=== PATIENT | female | born 1975 | race Caucasian/White ===

== ENCOUNTER 2021-10-18 09:15 | Outpatient (CLI) | payer BC, SELFPAY ==
--- NOTE | ~2021-10-18 | MR_ITS ---
EXAMINATION: MR lumbar spine wo con DATE: 10/18/2021 10:43 INDICATION: Low back pain. TECHNIQUE: Magnetic resonance imaging (MRI) of the lumbar spine was performed without intravenous con trast. Sequences included sagittal T2-weighted FSE, sagittal T2-weighted FS FSE, sagittal T1-weighted FSE, and axial T2-weighted FSE. COMPARISON: None FINDINGS: There is 6 degrees dextrocurvature of lumbar spine. There is 3 mm retrolisthesis of L5 on S 1. Vertebral body heights are normal. There is mildly decreased disc height at L3-L4 and severely dec reased disc height at L5-S1 with endplate remodeling. The distal spinal cord signal intensity is norm al. The conus medullaris is at L1-L2. The following disc levels are specifically discussed: L1-L2: The disc does not extend beyond the endplate margin. There is no facet joint osteoarthritis. T here is no neural foraminal stenosis. There is no central canal stenosis. L2-L3: The disc does not extend beyond the endplate margin. There is mild bilateral facet joint osteo arthritis. There is no neural foraminal stenosis. There is no central canal stenosis. L3-L4: The disc is bulging with superimposed central extrusion. There is mild bilateral facet joint o steoarthritis. There is mild right neural foraminal stenosis. There is mild central canal stenosis. L4-L5: The disc does not extend beyond the endplate margin. There is mild bilateral facet joint osteo arthritis. There is no neural foraminal stenosis. There is no central canal stenosis. L5-S1: The disc is bulging and has an annular fissure. There is no facet joint osteoarthritis. There is mild bilateral neural foraminal stenosis. There is no central canal stenosis. IMPRESSION: 1. Severe lower lumbar spondylosis. Reviewed, dictated and finalized at location B. STRIAL CONTROLS TECHNICIAN
== END 2021-10-18 09:16 | disposition home or self-care (01) ==
LOC: ANHIMG 09:22
PROVIDERS: PCP Internal Medicine; Visit Provider Physician Assistant Surgical
DX: M54.50 Low back pain, unspecified (principal); M47.816 Spondylosis without myelopathy or radiculopathy, lumbar region
CPT/HCPCS: 72148

== ENCOUNTER 2022-04-02 14:38 | Emergency (ER) | payer BC, SELFPAY ==
[2022-04-02] VITALS (18 sets, daily range): BP systolic 118–151; BP diastolic 62–95; PULSE 62–98; RESP 14–24; TEMP 36.6; O2SAT 94–100
--- NOTE | ~2022-04-02 | XR_ITS ---
EXAMINATION: XR chest 2V Exam Date/Time: 04/02/2022 14:45 CDT CLINICAL HISTORY: LEFT SIDE CHEST PAIN, RADIATING TO ARM AND JAW Comparison: None available. RESULT: Lines, tubes, and devices: None. Lungs and pleura: Clear. Cardiomediastinal silhouette: Normal cardiomediastinal silhouette. Other: No acute osseous or upper abdominal finding. IMPRESSION: No acute cardiopulmonary process Reviewed, dictated and finalized at location K.
--- NOTE | 2022-04-02 14:44 | ECG_ITS ---
Measurements Intervals [place] Rate: 83 P: 20 [place]: 146 QRS: -23 QRSD: 93 T: 50 QT: 381 QTc: 450 Interpretive Statements SINUS RHYTHM BASELINE ARTIFACT- V4 NORMAL ECG Electronically Signed On 04-02-2022 19:40:42 CDT by Isidro Herrera D.O.
--- NOTE | 2022-04-02 14:48 | ED.CHESTPAIN ---
HPI - Chest Pain General Chief Complaint: Chest Pain <Fide Jacobsen PA-C - Last Filed: 04/02/22 19:14> Stated Complaint: chest pain <GUMARO Bartholomew Last Filed: 04/02/22 19:14> Time Seen by Provider: 04/02/22 14:47 <GUMARO Bartholomew Last Filed: 04/02/22 19:14> Source: patient <GUMARO Bartholomew Last Filed: 04/02/22 19:14> Mode of arrival: ambulatory <GUMARO Bartholomew Last Filed: 04/02/22 19:14> Limitations: no limitations <GUMARO Bartholomew Last Filed: 04/02/22 19:14> History of Present Illness HPI narrative: Patient is a 46-year-old female with history of hypertension and hyperlipidemia who presents to the ED with report of chest pain. Patient reports she had pain in her left sided chest under her left breast around 2:30 AM this morning. She also reported having mild heaviness in her left arm at that time. The pain was intermittent for a couple hours. The pain did seem to radiate somewhat through to her back. Prior to arrival, she had another episode of pain which felt like it was coming from her right-sided chest across to her left, again with heaviness in her left arm. She then decided to come to the ED. Denies any significant pain upon my evaluation. She also reports having mild shortness of breath but does state she has been very anxious lately and also was seen at [facility] last week for an allergic reaction with possible anaphylaxis. No signs of anaphylaxis, systemic allergic reaction, or airway compromise at this time. Her allergic symptoms have improved with steroids Pepcid and Benadryl. Denies any nausea, vomiting, abdominal pain, fever, chills, cough, recent cold symptoms, pain with inspiration, BLE pain or edema. No family history of cardiac disease that she is aware of. No diabetes. No smoking. Patient does note she has been under increased stress lately with her allergic reaction episode, her daughter getting next week, and having upcoming back surgery. <GUMARO Bartholomew Last Filed: 04/02/22 19:14> Related Data Allergies/Adverse Reactions: Allergies Allergy/AdvReac Type Severity Reaction Status Date / Time aspirin Allergy Mild LIP Verified 04/02/22 16:33 TINGLING/SWELLING Penicillins Allergy Unknown Dyspnea / Unverified 04/02/22 16:33 SOB pregabalin Allergy Swelling Verified 04/02/22 16:33 <Fide Jacobsen PA-C - Last Filed: 04/02/22 19:14> Review of Systems Review of Systems: CONSTITUTIONAL: Denies fever, chills, or sweats. ENT: Denies rhinorrhea, congestion. CARDIOVASCULAR: Reports bilateral chest pain. Denies palpitations or BLE edema. RESPIRATORY: Reports mild shortness of breath. Denies pain with inspiration, cough. GASTROINTESTINAL: Denies abdominal pain, nausea, vomiting, or diarrhea. MUSCULOSKELETAL: Reports back pain. Denies BLE pain. NEUROLOGIC: Denies headache, numbness, or weakness. PSYCHIATRIC: Reports anxiety. <Fide Jacobsen PA-C - Last Filed: 04/02/22 19:14> All systems reviewed & are unremarkable except as noted in HPI and below <Fide Jacobsen PA-C - Last Filed: 04/02/22 19:14> PMFSH Past Medical History Medical History: Medical History (Updated 04/02/22 @ 18:42 by Fide Jacobsen PA-C) Hyperlipidemia Hypertension TIA (transient ischemic attack) <Fide Jacobsen PA-C - Last Filed: 04/02/22 19:14> Surgical History Surgical History: Surgical History (Updated 04/02/22 @ 15:09 by Fide Jacobsen PA-C) History of hysterectomy <Fide Jacobsen PA-C - Last Filed: 04/02/22 19:14> Social History Social History: Social History (Updated 04/02/22 @ 15:09 by Fide Jacobsen PA-C) Smoking status: Never smoker <Fide Jacobsen PA-C - Last Filed: 04/02/22 19:14> Exam Narrative: GENERAL: Well appearing, well-nourished, non-toxic, in no acute distress. HEAD: Normocephalic, atraumatic. NECK: Supple. No adenopathy, no masses. ENT: Pharynx n
[2022-04-02 15:30] LABS: Basophils Absolute Auto 0.1 K/mm3 (0.0-0.1); Basophils Percent Auto 0.9 % (0.2-1.2); Eosinophils Absolute Auto 0.1 K/mm3 (0-0.3); Eosinophils Percent Auto 0.7 % (0-4.4); Hematocrit 45.9 % (37.0-47.0); Hemoglobin 14.9 g/dL (12.0-15.0); Immature Granulocyte Absolute 0.11 K/mm3 (0.00-0.031); Immature Granulocyte Percent A 0.9 % (0-0.5); Lymphocytes Absolute Auto 3.54 K/mm3 (0.9-3.2); Lymphocytes Percent Auto 30.5 % (18.3-44.2); Mean Corpuscular HGB Conc 32.5 g/dl (32-36); Mean Corpuscular Hemoglobin 31.7 pg (26-34); Mean Corpuscular Volume 97.7 fl (80-100); Mean Platelet Volume 9.9 fl (7.4-10.4); Monocytes Absolute Auto 1.2 K/mm3 (0.1-0.6); Monocytes Percent Auto 10.3 % (2.6-8.5); Neutrophils Absolute Auto 6.6 K/mm3 (1.3-6.7); Neutrophils Percent Auto 56.7 % (45.5-73.1); Platelet Count Result 360 k/mm3 (150-375); Red Cell Distribution Width 12.5 % (11.5-14.5); White Blood Count 11.6 K/mm3 (4.5-10.0)
[2022-04-02 15:40] LABS: Prothrombin Time 12.8 Seconds (11.1-14.7)
[2022-04-02 15:41] LABS: Alanine Aminotransferase 17 U/L (4-35); Albumin Level 4.1 g/dL (3.5-5.1); Alkaline Phosphatase 71 U/L (38-126); Anion Gap 8 mmol/L (8-16); Aspartate Amino Transferase 25 U/L (14-36); Bilirubin,Total 0.3 mg/dL (0.2-1.3); Blood Urea Nitrogen 15 mg/dL (7-17); Carbon Dioxide 27 mmol/L (22-30); Chloride 104 mmol/L (98-107); Estimated CRCL calculation 82 ml/min; Estimated Glomerular Filt Rate > 60; Glucose 119 mg/dL (65-110); Lipase 193 U/L (23-300); Partial Thromboplastin Time 26.5 SECONDS (22.3-36.8); Potassium 3.2 mmol/L (3.4-5.0); Sodium 139 mmol/L (137-145)
[2022-04-02 15:43] LABS: D Dimer 0.36 ug/mL (<0.48)
[2022-04-02 15:53] LABS: Troponin I < 0.012 ng/mL (0.000-0.034)
[2022-04-02] MEDS: POTASSIUM CHLORIDE 20 MEQ TABLET 40 MEQ PO (16:33)
[2022-04-02 18:23] LABS: Troponin I < 0.012 ng/mL (0.000-0.034)
== END 2022-04-02 19:15 | disposition home or self-care (01) ==
PROVIDERS: Emergency Medicine; Physician Assistant; Emergency Provider Emergency Medicine; PCP Internal Medicine
DX: R07.89 Other chest pain (principal); E87.6 Hypokalemia; I10 Essential (primary) hypertension; E78.5 Hyperlipidemia, unspecified; Z86.73 Personal history of transient ischemic attack (TIA), and cerebral infarction without residual deficits
CPT/HCPCS: 36415; 71046; 80053; 83690; 84484; 85025; 85380; 85610; 85730; 93005; 99284; A9270

== ENCOUNTER 2022-06-15 08:57 | Outpatient (CLI) | payer BC, SELFPAY ==
--- NOTE | ~2022-06-15 | XR_ITS ---
EXAMINATION: XR barium swallow modified DATE: 06/15/2022 09:37 INDICATION: Dysphagia. Lump in throat. TECHNIQUE: The patient was given barium-containing material of multiple consistencies to swallow by t no speech pathologist while I performed fluoroscopy. Fluoroscopy exposure time was 1.0 minutes. The n umber of fluoroscopy images saved to the PACS was 2. Dose-area product was 0.6 Gy-cm^2. FINDINGS: The oral, pharyngeal, and cervical/esophageal phases of the swallow are normal. IMPRESSION: 1. Normal modified barium swallow. 2. Please refer to the speech therapy report for recommendations. Reviewed, dictated and finalized at location A.
--- NOTE | 2022-06-16 15:57 | STOPEVAL ---
MODIFIED BARIUM SWALLOW EVALUATION: Thank you for referring Fide Ni to [facility].? T Attending Provider: Jhoan Sadler MD FAX: [phone] Modified Barium Swallow Evaluation Recent Swallowing History Reports Dysphagia Yes: feels a lump & tightness in her throat when she swallows Onset of Dysphagia few months ago History of Dysphagia No Other Related History Pt reported increased anxiety recently History of Pneumonia No Reported Difficult Consistencies Unable to Identify Intake Method Prior to Swallow Oral Evaluation Diet Prior to Swallow Evaluation Regular, Level 7 Liquid Consistency Prior to Swallow Thin (0) Evaluation Consistency Solid Consistency Method of Presentation Spoon Oral Preparatory Symptoms None Oral Phase Symptoms None Pharyngeal Phase Symptoms None Severity of Vallecular Residue None - 0% No Residue Severity of Pyriform Sinus Residue None - 0% No Residue 8 Point Laryngeal Penetration-Aspiration Material Does Not Enter Airway Scale Cervical/Esophageal Symptoms None Mixed Consistency Method of Presentation Spoon Oral Preparatory Symptoms None Oral Phase Symptoms None Pharyngeal Phase Symptoms None Severity of Vallecular Residue None - 0% No Residue Severity of Pyriform Sinus Residue None - 0% No Residue 8 Point Laryngeal Penetration-Aspiration Material Does Not Enter Airway Scale Cervical/Esophageal Symptoms None Pureed Consistency Method of Presentation Spoon Oral Preparatory Symptoms None Oral Phase Symptoms None Pharyngeal Phase Symptoms None Severity of Vallecular Residue None - 0% No Residue Severity of Pyriform Sinus Residue None - 0% No Residue 8 Point Laryngeal Penetration-Aspiration Material Does Not Enter Airway Scale Cervical/Esophageal Symptoms None Thin Uncontrolled 2 Method of Presentation Straw Oral Preparatory Symptoms None Oral Phase Symptoms None Pharyngeal Phase Symptoms None Severity of Vallecular Residue None - 0% No Residue Severity of Pyriform Sinus Residue None - 0% No Residue 8 Point Laryngeal Penetration-Aspiration Material Does Not Enter Airway Scale Cervical/Esophageal Symptoms None Thin Uncontrolled 1 Method of Presentation Cup Oral Preparatory Symptoms None Oral Phase Symptoms None Pharyngeal Phase Symptoms None Severity of Vallecular Residue None - 0% No Residue Severity of Pyriform Sinus Residue None - 0% No Residue 8 Point Laryngeal Penetration-Aspiration Material Does Not Enter Airway Scale Cervical/Esophageal Symptoms
== END 2022-06-15 08:58 | disposition home or self-care (01) ==
PROVIDERS: PCP Internal Medicine; Visit Provider Otolaryngology
DX: R13.10 Dysphagia, unspecified (principal)
CPT/HCPCS: 92611

== ENCOUNTER 2022-06-27 15:47 | Outpatient (CLI) | payer BC, SELFPAY ==
--- NOTE | ~2022-06-27 | US_ITS ---
EXAMINATION: US soft tissue head and neck DATE: 06/27/2022 16:31 INDICATION: Pain in throat. Neck lump. TECHNIQUE: Multiple ultrasound images of the thyroid were obtained. COMPARISON: None. FINDINGS: The right thyroid lobe measures 4.2 x 1.2 x 1.4 cm. The left thyroid lobe measures 3.4 x 1.0 x 1.4 c m. The thyroid demonstrates heterogeneous echogenicity. No discrete nodule. Thyroid vascularity is n ormal. There are no pathologically enlarged lymph nodes. IMPRESSION: 1. No etiology for the patient's symptoms. Reviewed, dictated and finalized at location A.
== END 2022-06-27 15:48 | disposition home or self-care (01) ==
PROVIDERS: PCP Internal Medicine; Visit Provider Internal Medicine
DX: R07.0 Pain in throat (principal)
CPT/HCPCS: 76536

== ENCOUNTER 2024-07-16 07:56 | Outpatient (CLI) | payer OTHER, SELFPAY ==
--- NOTE | ~2024-07-16 | XR_ITS ---
3 VIEWS LUMBAR SPINE Ordering provider: Nik Sequeira, History: . no injuey left side Low back pain . Comparison: None. FINDINGS: VERTEBRAL BODIES: No visible fracture or subluxation. DISK SPACES: Narrowing of the disc L3-L4. Disc spacer at the level of L5-S1. Facet joint disease at t he level of L5-S1. SOFT TISSUES: Normal. IMPRESSION: No acute osseous abnormality lumbar spine. Reviewed, dictated and finalized at location A.
== END 2024-07-16 07:57 ==
PROVIDERS: PCP Internal Medicine; Visit Provider Internal Medicine
DX: M54.50 Low back pain, unspecified (principal)
CPT/HCPCS: 72100

== ENCOUNTER 2024-08-12 08:11 | Outpatient (CLI) | payer OTHER, SELFPAY ==
--- NOTE | ~2024-08-12 | CT_ITS ---
EXAMINATION: CT lumbar spine wo con DATE: 08/12/2024 08:28 INDICATION: Fusion of spine, lumbar region. TECHNIQUE: Computed tomography (CT) of the lumbar spine was performed without intravenous contrast. A utomated exposure control and iterative reconstruction technique were employed. The dose-length produ ct was 656.70 mGy-cm. COMPARISON: Lumbar spine radiographs 07/16/2024 FINDINGS: There is 9 degrees dextrocurvature lumbar spine. There are changes of disc replacement at L 5-S1. Vertebral body heights are normal. There is mildly decreased disc height at L3-L4. The followin g disc levels are specifically discussed: L1-L2: The disc does not extend beyond the endplate margin. There is mild bilateral facet joint osteo arthritis. There is no neural foraminal stenosis. There is no central canal stenosis. L2-L3: The disc does not extend beyond the endplate margin. There is mild bilateral facet joint osteo arthritis. There is no neural foraminal stenosis. There is no central canal stenosis. L3-L4: The disc is bulging. There is mild bilateral facet joint osteoarthritis. There is mild right n eural foraminal stenosis. There is mild central canal stenosis. L4-L5: The disc is bulging. There is moderate right and mild left facet joint osteoarthritis. There i s mild right neural foraminal stenosis. There is mild central canal stenosis. L5-S1: There is severe bilateral facet joint osteoarthritis. There is mild left neural foraminal sten osis. There is mild central canal stenosis. IMPRESSION: 1. Mild lumbar spondylosis. 2. Disc replacement at L5-S1. Reviewed, dictated and finalized at location A.
== END 2024-08-12 08:12 | disposition home or self-care (01) ==
LOC: MICIMG 08:12
PROVIDERS: PCP Internal Medicine
DX: M47.816 Spondylosis without myelopathy or radiculopathy, lumbar region (principal); M43.26 Fusion of spine, lumbar region
CPT/HCPCS: 72131

== ENCOUNTER 2025-04-19 09:10 | Outpatient (CLI) | payer OTHER, SELFPAY ==
--- NOTE | ~2025-04-19 | XR_ITS ---
XR hip LT min 2V 04/19/2025 09:23 Indication: Left hip pain Procedure: 2 views left hip Comparison: No prior studies for comparison. Findings: No fracture, subluxation or dislocation. Mild osteoarthritis of the left hip. No soft tissu e abnormality. Impression: 1: Mild osteoarthritis of the left hip. Reviewed, dictated and finalized at location A. Impression: 1: Mild osteoarthritis of the left hip.
== END 2025-04-19 09:11 | disposition home or self-care (01) ==
LOC: MICIMG 09:13
PROVIDERS: PCP Internal Medicine; Visit Provider Internal Medicine
DX: M16.12 Unilateral primary osteoarthritis, left hip (principal)
CPT/HCPCS: 73502

== ENCOUNTER 2025-06-02 09:32 | Outpatient (CLI) | payer OTHER, SELFPAY ==
--- NOTE | ~2025-06-02 | XR_ITS ---
EXAMINATION: XR lg joint inject/asp add, XR lg joint inject/asp w image DATE: 06/02/2025 13:09 INDICATION: Bilateral hip pain TECHNIQUE: A time-out was performed to verify the patient's name, date of , and procedure to b e performed. The procedure including the risks, benefits, and alternatives was discussed with the pat ient. Risks discussed included bleeding, allergic reaction and infection. The patient understood the risks and agreed to proceed. Attention was first turned to the right hip joint. The skin overlying th e right hip joint was prepped and draped in usual sterile fashion. Anesthetic was administered with 1% lidocaine subcutaneously. A 22 G needle was advanced under fluoroscopic guidance into the joint. Injection of 1 mL of Omnipaque 240 confirmed intra-articular position of the needle. Subsequently, i njectate consisting of 5 mm a 4:1 mixture of 1% lidocaine: 40 mg/mL Depo-Medrol was instilled. The pa tient began to experience some lightheadedness, shortness of breath and numbness and tingling in the fingers however this either shortly preceded or was exactly contemporaneous with the contrast injecti on essentially excluding contrast reaction as the etiology. Aside from the anxious appearance of the patient she was in otherwise no apparent distress with normal respiratory rate and with oxygen satura tion of 100%. There was no wheezing, hives or other abnormal skin manifestations. The needle was angelia demarco and the entry site was cleaned and dressed. The table was tilted to slightly elevate the patient' s feet and her symptoms gradually resolved over the next half hour of observation. Attention was then turned to the contralateral left hip. The skin overlying the left hip joint was pr epped and draped in usual sterile fashion. Anesthetic was administered with 1% lidocaine subcutaneou sly. A 22 G needle was advanced under fluoroscopic guidance into the joint. A small amount of room a ir was injected to confirm intra-articular position of the needle. Subsequently, injectate consisting of 5 mm a 4:1 mixture of 1% lidocaine: 40 mg/mL Depo-Medrol was instilled. The patient describes sim ilar but significantly less symptoms during the second injection performed without contrast. Patient described that she has recently developed episodes of anxiety which together with possible associated vasovagal response appear most likely to account for the symptoms occurring during the procedure. Th ere were no other immediate complications. Fluoroscopy exposure time was 0.1 minutes. The total numbe r of images was 3. FINDINGS: Real-time fluoroscopy demonstrated the needle and contrast first in the right hip joint. Desouza bsequent imaging demonstrated the needle and some injected gas in the left hip joint. Patient's pain prior to procedure:06/05. Patient's pain following the procedure: 12/06. IMPRESSION: 1. Successful right hip joint injection of local anesthetic and steroid with decrease in the patient' s presenting pain. 2. Successful left hip joint injection of local anesthetic and steroid with decrease in the patient's presenting pain. 3. Likely episode of anxiety possible associated vasovagal response occurring during the initial inje ction but either immediately preceding or contemporaneous with the contrast injection and this is not felt to represent a contrast reaction. Similar but more mild symptoms also occurred during the secon d injection which was performed without contrast. Reviewed, dictated and finalized at location A. IMPRESSION: 1. Successful right hip joint injection of local anesthetic and steroid with de crease in the patient's presenting pain. 2. Successful left hip joint injection of local anesthetic and steroid with dec rease in the patient's presenting pain. 3. Likely episode of anxiety possible associated vasovagal response occurring d uring the initial injection but either immediately preceding or contemporaneous with the contrast injection and this is not felt to represent a contrast react ion. Similar but more mild symptoms also occurred during the second injection w hich was performed without contrast.
--- OUTSIDE RECORDS SUMMARY | 2025-06-02 09:40 | XMS_ITS | Referral Summary ---
Author Organization [address] Address [address] [place] [id number] Care Team Providers Care Cuff Cutter Name Role Phone Nik Sequeira MD Primary Care Provider [phone] Edgar Rodriguez MD Unavailable [phone] Encounters Date Type Department Care Team Description 04/07/[address] [facility] [address] [address] Regina Gonzalez MD 04/07/2025 2:30 PM CDT Office Visit [facility] [address] [address] Regina Gonzalez MD Overweight with body mass index (BMI) of 25 to 25.9 in adult (Primary Dx) 03/05/[address] [facility] [address] [address] Barrington Sepulveda II, MD from Last 3 Months Allergies Active Allergy Reactions Criticality Noted Date Comments Aspirin Itching Low 10/12/2022 Levofloxacin Unknown,Itching,Othe r (See comments) Low 02/11/2022 Other reaction(s): Drug rash Itching, burning, facial tingling/numbness Lisinopril Anaphylaxis,Unknown High 07/27/2022 Penicillins Unknown,Rash High 08/20/2014 Other reaction(s): Difficulty breathing with activity, Tingling around lips Pregabalin Other (See comments) Low 10/12/2022 Medications rosuvastatin (CRESTOR) 20 mg tablet Take 1 tablet (20 mg total) by mouth daily Active pantoprazole DR (PROTONIX) 40 mg EC tablet Take 1 tablet (40 mg total) by mouth daily Active busPIRone (BUSPAR) 7.5 mg tablet Active escitalopram (LEXAPRO) 10 mg tablet escitalopram 10 mg tablet Active tirzepatide, weight loss, (Zepbound) 10 mg/0.5 mL pen injector Inject 0.5 mL (10 mg total) under the skin every 7 days 2 mL 2 Active Active Problems Problem Noted Date Diagnosed Date Overweight with body mass in dex (BMI) of 25 to 25.9 in adult 04/07/2025 Abnormal mammogram 10/12/2022 Lumbar disc disease with radiculopathy Social History Tobacco Use Types Packs/Day Years Used Date Smoking Tobacco: Former Cigarettes 1 4 1 99 - 1995 Tobacco Cessation:Counseling Given: Not Answered AUDIT-C Answer Date Recorded Q1: How often do you have a drink containing alc ohol? Monthly or less 10/12/2022 Q2: How many drinks containi ng alcohol do you have on a typical day when you are drinking? 1 or 2 10/12/2022 Q3: How often do you have si x or more drinks on one occasion? 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 Gender Identity Not on file Sexual Orientation Not on file Last Filed Vital Signs Vital Sign Reading Time Taken Comments Blood Pressure 112/60 04/07/2025 2:52 PM CDT Pulse 88 04/07/2025 2:52 PM CDT Temperature - - Respiratory Rate 18 04/07/2025 2:52 PM CDT Oxygen Saturation - - Inhaled Oxygen Concentration - - Weight 78.7 kg (173 lb 9.6 oz) 04/07/2025 2:52 P M CDT Height 175.3 cm (5' 9) 04/07/2025 2:52 PM CDT Body Mass Index 25.64 04/07/2025 2:52 PM CDT Plan of Treatment Not on file Medical Devices Implanted Type Area Regulatory Analyst Device Identifier Shelf Expiration Date Model / Serial / Lot Bard Peripheral Vascular Ultraclip Bard 17ga 10cm 2 Trigger Permanent Ultrasound [id number] - [id number] Implanted:Qty: 1 on 10/26/2022 at [facility] [employer] [id number] / / Procedures Procedure Name Priority Date/Time Associated Diagnosis Comments SCREENING MAMMOGRAM BILATERAL W CRISTOPHER Schedule Routine, Read Routine (OP Routine) 02/14/2025 8:13 AM CDT Screening mammogram, encounter for from Last 3 Months or Most Recently Relevant to Health Maintenance Results * Screening Mammogram Bilateral W Cristopher (02/14/2025 8:13 AM CDT) Anatomical Region Laterality Modality Breast Bilateral Mammography 02/14/2025 8:22 AM CDT Impressions 02/14/2025 8:22 AM CDT There is no mammographic evidence of malignancy. A 1 year screening mammogram is recommended. BI-RADS: 1 - Negative. The patient has been or will be contacted. The patient will be entered into a reminder system with a target due date of 1 year for her next mammogram. Electronically signed by: Christelle Moreno M.D. Narrative 02/14/2025 8:22 AM CDT EXAMINATION: SCREENING MAMMOGRAM BILATERAL W CRISTOPHER ORDERING HEALTHCARE PROVIDER: SELF SCREENING MAMMOGRAM HISTORY: Routine screening mammography. COMPARISON: 10/26/2022, 10/12/2022, 08/16/2022, 08/03/2022, 04/19/2021 TECHNIQUE: CC and MLO views of the bilateral breasts were obtained with digital technique using breast tomosynthesis with C view. Computer aided detection was utilized. FINDINGS: DENSITY: The breasts are heterogeneously dense, which may obscure small masses. BREASTS: There is a biopsy marker clip in the left breast. There are no suspicious masses, suspicious calcifications, or other suspicious findings in either breast. There has been no suspicious interval change. us Self Screening Mammogram IMG MAMMO PROCEDURES Fi nal Result from Last 3 Months or Most Recently Relevant to Health Maintenance Insurance [employer] [facility] Care Teams Cuff Cutter Relationship Specialty Start Date End Date Nik Sequeira MD PCP - General Internal Medicine 04/07/22 Edgar Rodriguez MD [address] [place] [address] Referring Physician Obstetrics and Gynecology 08/18/22
--- OUTSIDE RECORDS SUMMARY | 2025-06-02 09:40 | XMS_ITS | Clinical Summary ---
Author Organization [facility] Address [address] [place] [address] Phone Care Team Providers Care Sap Project Manager Name Role Phone Nik Sequeira MD Primary Care Provider [phone] Allergies Active Allergy Reactions Criticality Noted Date Comments Levofloxacin Itching,Other (See Comments) Low 02/11/2022 Itching, burning, facial tingling/numbness Penicillins Rash Low 02/11/2022 Medications lisinopriL (PRINIVIL) 10 mg tablet Take 10 mg by mouth daily. Active rosuvastatin (CRESTOR) 20 mg tablet Take 20 mg by mouth daily. Active pantoprazole (PROTONIX) 40 mg Tablet, Delayed Release (E.C.) Take 40 mg by mouth daily. Active gabapentin (NEURONTIN) 300 mg capsule Take 300 mg by mouth 3 times daily. 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 Gender Identity Not on file Sexual Orientation Not on file Last Filed Vital Signs Vital Sign Reading Time Taken Comments Blood Pressure 174/118 02/11/2022 10:13 AM CDT Pulse 84 02/11/2022 10:18 AM CDT Temperature - - Respiratory Rate 18 02/11/2022 9:08 AM CDT Oxygen Saturation 95% 02/11/2022 10:18 AM CDT Inhaled Oxygen Concentration - - Weight - - Height - - Body Mass Index - - Plan of Treatment Health Maintenance Due Date Last Done Comments DTAP/TDAP/TD VACCINES (1 - Tdap) 1996 HEPATITIS B VACCINES (1 of 3 - 19+ 3-dose series) 07/28 BREAST CANCER SCREENING 2017 COLORECTAL SCREENING 2022 Colorectal Cancer Screening 2022 FIT-DNA Q 3 years 2022 FIT/FOBT Q 1 year 2022 Flex Sig/CT Colonography Q 5 years 2022 INFLUENZA VACCINE (#1) 2025 Insurance BLUE PREFERRED Care Teams Sap Project Manager Relationship Specialty Start Date End Date Nik Sequeira MD [address] [facility] [address] [place] [id number] PCP - General Internal Medicine 02/09/22
--- OUTSIDE RECORDS SUMMARY | 2025-06-02 09:40 | XMS_ITS | Data Portability ---
Author Organization [place] [facility] [employer], Main Office Address [address] [place] [address] Assessment Encounter Date Assessment Date Assessment LastModified by Organization Details LastModified Time 07/26/2024 07/26/2024 The patient is here today to f/u after more than six weeks of physician directed home exercise routine and oral medication. The pain has not improved and she is now hurting on a daily basis and is limiting her activities of daily living. [email or web address] Not available 07/26/2024 16:29:24 05/05/2025 05/05/2025 49-year-old female presents for evaluation of her bilateral hips. She reports pain in the hips that has been going on since 2021. Around that time she had a lumbar fusion and was told that the pain is coming from the hips rather than the back. She has tried ice and heat as well as meloxicam and gabapentin none of which have really helped. She reports pain and burning going down her legs. Is in the front and back. She currently rates her pain 6/10. Review of systems per patient questionnaire physical exam: She has positive straight leg raise and contrast straight leg raise bilaterally, worse on the left. No pain with logroll. Flexion 0 110, internal rotation 10, external rotation 30 bilaterally. Tenderness over the groin and posterior hip. No tenderness over the lateral trochanter. Positive Stinchfield, good strength with flexion, abduction, adduction. X-rays of the right hip and pelvis were reviewed and previous x-rays of the left hip were also reviewed, demonstrating a lumbar fusion. Mild degenerative changes. she has some hip arthritis but given her exam findings she may also have pain that is coming from her back. We will send her to physical therapy and add her hips in addition to her spine. She has been taking meloxicam which does not really help him we will try switching her over to Celebrex. We also discussed a hip injection which would be diagnostic and therapeutic. We will start with her left hip and see how that works for her. We will see her back in 6 weeks for recheck. She is in agreement with the plan. [email or web address] Not available 05/05/2025 12:30:22 Plan of Treatment Reminders Order Date Submit Date Provider Last Modified By Organization Details Last Modified Time Details Appointments Any 5 2024 08:55A M Moe Damon MD Not available Not available Not available Lab vitamin D, 25-hydr oxy, total, serum 2024 025 [email or web address] [facility], [address], [address], [place], [address], 04/01/2025 09:58:15 CBC w/ auto diff 2024 025 [email or web address] [facility], [facility] [address], [address], [place], [address], 04/01/2025 09:58:14 CMP, serum or plasma 2024 025 [email or web address] [facility], [address], [address], [place], [address], 04/01/2025 09:58:14 lipid panel, serum 2024 025 DIDIER [facility], [address], [place], [address], 03/26/2025 11:05:35 Referral physica l therapi st referra l - Please contact patient to travon mayen 2024 025 [email or web address] [facility] [place], [address] [place] [address], [place], [address], 05/06/2025 13:12:00 orthope dic spine surgeon pari l - we have been working with the patient to obtain poly berger for mri and return to Dr. Roberto O'boyni ck for continu ed care, she is an establi shed patient with previou s surgery . Insuhelen roman has been denying the mri. 2023 024 [email or web address] Gus Persaud MD, [address], [address], [place], [address], 09/24/2024 08:32:07 Procedures injecti on, hip, fluoro guidanc e (PROC) - EUNICE hips 4cc 1% Lidocai ne & 40mg Depomed rol Precert ificati on Require d?: N 2024 025 [facility], [address] [facility] [address] [facility], [facility], [place], [address], 05/09/2025 16:10:34 Surgeries None recorde d. Imaging XR, hip + pelvis, unilate ral 2024 025 [email or web address] [facility] [place], [address], [place], [address], 05/06/2025 13:12:00 XR, hip, unilate ral, 2 or 3 view 2024 025 [facility], [address], [facility] [address], [place], [address], 04/22/2025 14:13:21 MAMMO, screeni ng, bilater al - Please call patient to travon monte 2024 025 [email or web address] 1 Tim [facility]udelo (Radiology), [address] [facility] , [place], [address], 12/23/2024 16:46:23 MRI, lumbar spine, w/o contras t - pt has complte d six weeks of conserv ative treatme nt under physici an directi on with no improve ment will need to start a new prior authori zation 2023 024 [facility], [address], [facility] [address], [place], [address], 09/02/2024 17:08:31 Medication Orders Lidoder m 5 % topical patch 2024 025 [email or web address] [facility], [address] [place] [address], [id number], 05/16/2025 11:54:17 doxycyc line hyclate 100 mg capsule 2024 025 DIDIER [facility], [address] [place] [address], [id number], 05/15/2025 11:13:48 celecox ib 200 mg capsule 2024 025 [email or web address] [facility], [address] [place] [address], [id number], 05/15/2025 10:33:54 Patient TargetsNo targets recorded. Patient Instructions Encounter Date Encounter Id Patient Instructions Last Modified By Organization Details Last Modified Time 05/15/2025 [id number] Discussed the importance of antibiotic therapy compliance. Patient needs to take medication as prescribed, including completing entire course even if symptoms improve/resolve. Discussed possible side effects of medication. Instructed patient to take medication with food to prevent stomach upset and increase daily water intake. Patient will follow up in 3-4 days if symptoms are not improving or worsen while taking antibiotics. [email or web address] Not available 05/15/2025 11:09:19 Avoid tanning beds and sun exposure at this time due to medication side effect. If out in sun, wear protective clothing and wear sunscreen, or avoid sun at this time. Patient aware of risks and concerns. [email or web address] Not available 05/15/2025 11:13:41 Reason for Referral Orthopedic Spine Surgeon Ref erral for Low back pain we have been working with the patient to obtain insurance approval for mri and return to Dr. Roberto Persaud for continued care, she is an established patient with previous surgery. Insurance has been denying the mri. Referring Physician: Anjana Mcclendon, Family Medicine, Encounter Date: 07/26/2024 Physical Therapist Referral for Pain of hip region Please contact patient to schedule Referring Physician: Moe Damon, Orthopedic Surgery, Encounter Date: 05/05/2025 Results Created Date Observation Date Name Description Value Unit Range Abnormal Flag Note LastModifiedBy Organization Detail LastModifiedTime 07/19/20 24 07/16/2024 XR, lumbo sacra l spine , 2 or 3 view No observ ation record ed. [email or web address] Not Available 2023 08:24:29 08/13/[address], lumba r spine , w/o contr ast No observ ation record ed. BARCODE Not Available 2023 18:39:36 02/15/2002/14/2025 MAMMO , scree florinda, bilat eral No observ ation record ed. [email or web address] [facility] (Radiology) [address] [place] [address] , [place], [address], 02/19/2025 15:52:56 04/22/20 25 04/22/2025 XR, hip, unila teral , 2 or 3 view No observ ation record ed. [email or web address] [facility] [address] [place] [address], [place], [address], 04/23/2025 15:03:09 05/05/20 XR, hip + pelvi s, unila teral No observ ation record ed. [email or web address] [facility] [address], [place], [address], 05/05/2025 11:19:06 Result Notes None recorded. Problems Name Problem SNOMED Code Status Onset Date Resolution Date Notes Provider Name and Address Organization Details Recorded Time Pain in right sacroilia c joint 59276375906 240697 Completed 202005/25/2022 Not Available [facility] 14:14:44 Pain in throat 316266156 Completed 202108/16/2022 Not Available [facility] 14:14:45 Heartburn 27359980 Completed 201805/25/2022 Not Available [facility] 3 14:14:45 Mammograp hy abnormal 687953810 Active 2021 Not Available [facility] 4 21:49:14 Hypertrop hy of uterus 893966233 Completed 03/24/2025 Nik Sequeira MD [address] [facility], [facility] [address], [place], [address] , [facility] [employer] 5 09:29:44 Gastroeso phageal reflux disease 350298073 Active 2020 Not Available [facility] 4 21:49:14 Vaginal discharge 339995641 Completed Not Available [facility] 3 14:14:45 Cyst of skin 393124642 Active 2021 Not Available [facility] 4 21:49:14 Pain in toe 735881056 Completed 201805/25/2022 Not Available [facility] 3 14:14:45 Chest pain 45887319 Completed 202105/25/2022 Not Available [facility] 3 14:14:45 Hypertrig lyceridem ia 836577818 Active Not Available [facility] 4 21:49:14 Menometro rrhagia 930665386 Active Not Available [facility] 4 21:49:14 Sinusitis 29808600 Completed TOM Wing, [facility] [employer] 4 11:14:40 Hematoma 299648355 Completed Not Available [facility] 3 14:14:46 Onychomyc osis of toenails 854425460 Completed 201805/25/2022 Not Available [facility] 3 14:14:46 Obesity 662113909 Active 2020 Not Available [facility] 4 21:49:14 Allergic reaction to drug 188791380 Completed 202105/25/2022 Not Available [facility] 3 14:14:46 Seasonal allergy 740934663 Active 2018 Not Available [facility] 4 21:49:14 Anxiety 49988192 Active Not Available [facility] 4 21:49:14 Hyperlipi demia 72084594 Active Not Available [facility] 4 21:49:14 Essential hypertens ion 88694045 Active Not Available [facility] 4 21:49:14 COVID-19 599702651 Active 2022 Not Available [facility] 4 21:49:14 Fatigue 86916493 Completed 202005/25/2022 Not Available [facility] 3 14:14:47 Acute sinusitis 11449333 Active 2022 Not Available [facility] 4 21:49:14 Sleep pattern disturban ce 74894427 Active 2022 Not Available [facility] 4 21:49:14 Vaginitis 76112261 Active 2022 Not Available [facility] 4 21:49:14 Yeast detected 947687726 Active 2022 Not Available [facility] 4 21:49:14 Acute bronchiti s 01721021 Active 2023 ESAU Nunes, [place] [facility] [employer] [facility] 4 15:06:24 Low back pain 224003154 Active 2023 Nik Sequeira MD [address], [address], [place], [address] , [facility] [address] [email or web address] [facility] 4 09:35:17 Gout 99690947 Active 2023 Nik Sequeira MD [address], [address], [place], [address] , [facility] [email or web address] 4 09:36:42 Folliculi tis 24331026 Active 2023 Nik Sequeira MD [address], [address], [place], [address] , [facility] [employer] [facility] 4 09:36:42 Sinusitis 38749867 Active 2023 Mavis Zheng MA null, [place] [facility] [place] [facility] 4 11:14:40 Lumbar radiculop athy 858889822 Active 2023 Mavis Zheng MA null, [place] [facility] 4 14:45:26 Chronic low back pain 896172152 Active 2023 Mavis Zheng MA null, [place] [facility] [place] [facility] 4 14:46:43 Allergic rhinitis 60090631 Active 2023 Radha pozo RMA null, [place] [facility] [place] [facility] 4 16:59:05 Pain of left hip joint 81446497068 9100 Active 2024 Nik Sequeira MD [address], [address], [place], [address] , [facility] 5 09:25:25 Candidias is of skin 38642560 Active 2024 Mavis Zheng MA null, [facility] 5 17:00:21 Arthritis 1123233 Active 2024 Radha pozo RMAutumn null, [facility] 5 17:38:44 Pain of hip region 48034432 Active 2024 BRITTANIE Ramirez [address], [address], [place], [address] , [facility] 5 11:29:03 Osteoarth ritis of hip 478114804 Active 2024 Kate Freitas null, [place] [facility] [place] [facility] 5 11:45:28 Acute otitis media 6567779 Active 2024 BRITTANIE Ramirez [address], [address], [place], [address] , [facility] 5 10:51:29 Otitis externa 5681785 Active 2024 BRITTANIE Ramirez [address] [facility], [address], [place], [address] , [employer] 5 10:32:43 Notes:back/neck problems, st roke Problem Notes None recorded. Procedures Surgical History Date Name Laterality Status Provider Name and Address Organization Details Recorded Time Back Surgery completed ESAU [facility] 05/05/2025 11:17:03 Imaging Results None recorded. Procedure Notes None recorded. Medical Equipment None Reported. Allergies Allergen ID Allergen Name Allergen Category Reaction Reaction Severity Criticality Documentation Date Start Date Code Code System Note Provider Name and Address Organization Details Recorded Time 77825 Product containin g penicilli n (product) medicatio n rash severe Not available 01/25/20232013 39306 8001 SNOMED red bumps , itchi ness Not Available formerly [facility] 3 14:18:26 83560 lisinopri l medicatio n Not available Not available Not available 01/25/2023 36314 RxNorm angio edema Not Available formerly [facility] 3 14:18:26 75168 aspirin medicatio n itching Not available Not available 01/25/2023 1191 RxNorm LIPS TURN PURPL E Not Available formerly [facility] 3 14:18:26 Medications Name Sig Start Date Stop Date Status Note LastModified by Organization Details LastModified Time celecoxib 200 mg capsule TAKE 1 CAPSULE BY MOUTH ONCE DAILY 05/15 completed Not Available Not Available Not Available cyclobenz aprine 10 mg tablet Take 1 tablet 3 times a day by oral route as needed. 11/01 completed Not Available Not Available Not Available Augmentin 875 mg-125 mg tablet Take 1 tablet every 12 hours by oral route for 10 days. 01/22 completed Not Available Not Available Not Available prednison e 10 mg tablet TAKE 1 TAB 3 TIMES DAILY FOR 3 DAYS THEN TAKE 1 TAB TWICE DAILY FOR 2 DAYS AND THEN TAKE 1 TAB ONCE DAILY FOR 1 DAY 08/31 completed Not Available Not Available Not Available doxycycli ne hyclate 100 mg capsule TAKE 1 CAPSULE BY MOUTH TWICE DAILY FOR 5 DAYS active Not Available Not Available No t Available trazodone 50 mg tablet Take 1 tablet every day by oral route as needed. active Not Available Not Available No t Available oxybutyni n chloride ER 10 mg tablet,ex tended release 24 hr Take 1 tablet every day by oral route. 08/20 completed Not Available Not Available Not Available azithromy nasreen 250 mg tablet TAKE 2 TABLETS BY MOUTH ON DAY 1, AND THEN TAKE 1 TABLET BY MOUTH ONCE A DAY ON DAY 2 THROUGH DAY 5 01/22 completed Not Available Not Available Not Available alprazola m 1 mg tablet TAKE 1 TAB BY MOUTH BEFORE FLIGHT 05/05 completed Not Available Not Available Not Available amitripty line 75 mg tablet active Not Available Not Available No t Available tizanidin e 4 mg tablet TAKE 1 TABLET BY MOUTH EVERY 6 TO 8 HOURS NEEDED MAX 3 DOSES IN 24 HOURS 01/31 completed Not Available Not Available Not Available fluconazo le 150 mg tablet TAKE 1 TABLET BY MOUTH ONCE DAILY FOR 1 DAY 05/05 completed Not Available Not Available Not Available benzonata te 200 mg capsule TAKE 1 CAPSULE BY MOUTH THREE TIMES DAILY NEEDED active Not Available Not Available No t Available hydrocodo ne 5 mg-acetam inophen 325 mg tablet 06/16 completed Not Available Not Available Not Available senna 8.6 mg tablet TAKE 2 TABLETS BY MOUTH IN THE EVENING FOR 7 DAYS NEEDED FOR CONSTIPA TION 09/05 completed Not Available Not Available Not Available meloxicam 15 mg tablet TAKE 1 TABLET BY MOUTH ONCE DAILY 05/15 completed Not Available Not Available Not Available ondansetr on HCl 4 mg tablet TAKE 1 TABLET BY MOUTH EVERY 8 HOURS NEEDED FOR NAUSEA 12/17 completed Not Available Not Available Not Available prednison e 20 mg tablet TAKE 3 TABLETS BY MOUTH ONCE DAILY FOR 5 DAYS 04/07 completed Not Available Not Available Not Available ciproflox acin 250 mg tablet TAKE 1 TABLET BY MOUTH EVERY 12 HOURS FOR 5 DAYS active Not Available Not Available No t Available sulfameth oxazole 800 mg-trimet hoprim 160 mg tablet active Not Available Not Available Not Available tramadol 50 mg tablet 01/23 completed Not Available Not Available Not Available amitripty line 50 mg tablet active Not Available Not Available No t Available ketorolac 10 mg tablet TAKE 1 TABLET BY MOUTH EVERY 8 HOURS NEEDED FOR UP TO 5 DAYS TOTAL USE 12/17 completed Not Available Not Available Not Available prednison e 10 mg tablets in a dose pack Take 1 tab by mouth, 3 times a day for 3 daysTake 1 tab by mouth 2 times a day for 2 daysTake 1 tab by mouth once a day for 1 day 08/31 completed Not Available Not Available Not Available oxycodone -acetamin ophen 5 mg-325 mg tablet TAKE 1 TABLET BY MOUTH EVERY 4 HOURS NEEDED FOR PAIN FOR 7 DAYS 06/16 completed Not Available Not Available Not Available terbinafi ne HCl 250 mg tablet TAKE 1 TABLET BY MOUTH ONCE DAILY DIRECTED FOR 30 DAYS active Not Available Not Available No t Available alprazola m 0.5 mg tablet TAKE 1 TABLET BY MOUTH DAILY NEEDED 06/22 completed Not Available Not Available Not Available alprazola m 0.25 mg tablet Take 1 tablet(s ) 20 minutes before flight 12/05 completed Not Available Not Available Not Available famotidin e 20 mg tablet TAKE 1 TABLET BY MOUTH EVERY 12 HOURS FOR 5 DAYS 06/16 completed Not Available Not Available Not Available amitripty line 25 mg tablet active Not Available Not Available No t Available lorazepam 0.5 mg tablet TAKE 1 TABLET BY MOUTH TWICE DAILY NEEDED FOR FLIGHT 06/22 completed Not Available Not Available Not Available Kenalog 10 mg/mL suspensio n for injection In office injectio n administ ered by the provider 06/16 completed [facility]: [phone] 4-20 Not Available Not Available Not Available benzonata te 100 mg capsule TAKE 1 CAPSULE BY MOUTH THREE TIMES DAILY 01/31 completed Not Available Not Available Not Available pantopraz ole 40 mg tablet,de layed release TAKE 1 TABLET DAILY 05/05 completed as needed Not Available Not Available Not Available lidocaine 5 % topical patch APPLY 1 PATCH TOPICALL Y ONCE DAILY (MAY WEAR UP TO 12 HOURS) 2024 active Not Available Not Available Not Avai lable gabapenti n 300 mg capsule TAKE 1 CAPSULE BY MOUTH THREE TIMES DAILY 12/17 completed Not Available Not Available Not Available buspirone 7.5 mg tablet TAKE 1 TABLET TWICE A DAY 2024 active Not Available Not Available Not Avai lable alprazola m 2 mg tablet Take 1 tablet every day by oral route for 2 days. active Not Available Not Available No t Available lisinopri l 10 mg-hydroc hlorothia zide 12.5 mg tablet TAKE 1 TABLET BY MOUTH ONCE DAILY 06/16 completed Not Available Not Available Not Available levofloxa nasreen 500 mg tablet Take 1 tablet every 24 hours by oral route for 10 days. 01/26 completed Not Available Not Available Not Available methylpre dnisolone 4 mg tablets in a dose pack TAKE BY MOUTH DIRECTED ON INSIDE OF PACKAGE 12/17 completed Not Available Not Available Not Available albuterol sulfate HFA 90 mcg/actua tion aerosol inhaler INHALE 2 PUFFS BY MOUTH EVERY 4 HOURS 12/17 completed Not Available Not Available Not Available celecoxib 100 mg capsule TAKE 1 CAPSULE BY MOUTH EVERY 12 HOURS active Not Available Not Available No t Available ketoconaz ole 2 % topical cream APPLY CREAM TOPICALL Y TO AFFECTED AREA ONCE DAILY 07/26 completed Not Available Not Available Not Available cefdinir 300 mg capsule active Not Available Not Available Not Available fluticaso ne propionat e 50 mcg/actua tion nasal spray,shwetha pension Inhale 1 spray every day by intranas al route. active Not Available Not Available No t Available doxycycli ne hyclate 100 mg tablet Take 1 tablet twice a day by oral route for 7 days. 12/17 completed Not Available Not Available Not Available atenolol 50 mg tablet TAKE 1 TABLET DAILY 12/17 completed Not Available Not Available Not Available neomycin- polymyxin -hydrocor t 3.5 mg-10,000 unit/mL-1 % ear drops,shwetha p INSTILL 4 DROPS INTO AFFECTED EAR(S) THREE TIMES DAILY active Not Available Not Available No t Available escitalop bon 10 mg tablet TAKE 1 TABLET DAILY AT BEDTIME 2024 active BUNNY 12/17/24 NOV 03/24/25 ok to rf Not Available Not Available Not Available escitalop bon 20 mg tablet 08/17 completed decrease d to 10mg Not Available Not Available Not Available cyclobenz aprine 5 mg tablet TAKE 1 TABLET BY MOUTH THREE TIMES DAILY 01/31 completed Not Available Not Available Not Available rosuvasta tin 20 mg tablet TAKE 1 TABLET DAILY 2024 active BUNNY 12/17/24 NOV 03/24/25 ok to rf Not Available Not Available Not Available nitrofura ntoin monohydra te/macroc rystals 100 mg capsule TAKE 1 CAPSULE BY MOUTH EVERY 12 HOURS FOR 10 DAYS active Not Available Not Available No t Available pregabali n 25 mg capsule TAKE 1 CAPSULE BY MOUTH THREE TIMES DAILY 06/16 completed Not Available Not Available Not Available lidocaine (PF) 10 mg/mL (1 %) injection solution In office injectio n administ ered by the provider 06/16 completed [facility]: [phone] 05-13 Not Available Not Available Not Available [facility] 2013 active Not Available Not Available Not Avai lable Pataday Once Daily Relief 0.2 % eye drops INSTILL 1 DROP INTO AFFECTED EYE(S) BY OPHTHALM IC ROUTE ONCE DAILY 12/17 completed Not Available Not Available Not Available Paxlovid 300 mg (150 mg x 2)-100 mg tablets in a dose pack UUD on packet 06/22 completed Not Available Not Available Not Available Zepbound 10 mg/0.5 mL subcutane ous pen injector INJECT 1 PEN-INJE CTOR SUBCUTAN EOUSLY ONCE A WEEK active Not Available Not Available No t Available Zepbound 5 mg/0.5 mL subcutane ous pen injector INJECT 1/2 (ONE-EVERTON F) MLSUBCUT ANEOUSLY ONCE A WEEK FOR 28 DAYS 05/15 completed Not Available Not Available Not Available Zepbound 2.5 mg/0.5 mL subcutane ous pen injector INJECT 2.5 MG SUBCUTAN EOUSLY ONCE A WEEK FOR 4 WEEKS 03/24 completed Not Available Not Available Not Available Zepbound 12.5 mg/0.5 mL subcutane ous pen injector INJECT 12.5 MG ONCE WEEKLY BY SUBCUTAN EOUS INJECTIO N FOR 4 WEEKS 12/17 completed Not Available Not Available Not Available Zepbound 7.5 mg/0.5 mL subcutane ous pen injector INJECT 1/2 (ONE-EVERTON F) ML ONCE A WEEK FOR 28 DAYS 05/15 completed Not Available Not Available Not Available Vitals Date Recorded Body height Body mass index (BMI) Body weight Body temperature Heart rate Oxygen saturation Oxygen saturation in Arterial blood by Pulse oximetry Systolic And Diastolic Provider Name and Address Organization Details Last Updated DateTime 5 175.26 cm 25.8 kg/m2 39599.6 6 g 97.8 [degF] 81 /min 98 % 98 % 110/70 mm[Hg] Radha Cateshaven shelley [facility] [address] [facility] 5 09:00:48 Date Recorded Body height Body mass index (BMI) Body weight Body temperature Oxygen saturation Oxygen saturation in Arterial blood by Pulse oximetry Heart rate Systolic And Diastolic Provider Name and Address Organization Details Last Updated DateTime 5 175.26 cm 25.7 kg/m2 48911.0 7 g 97.1 [degF] 98 % 98 % 76 /min 120/80 mm[Hg] Radha Cardenasjennifer shelley Autumn [facility] [employer] 5 09:02:38 Date Recorded Body height Body mass index (BMI) Body weight Provider Name and Address Organization Details Last Updated DateTime 05/05/2025 175.26 cm 25.7 kg/m2 19868.07 g Addis Siegel [facility] [employer] 05/05/2025 11:15:14 Date Recorded Body height Body mass index (BMI) Body weight Body temperature Oxygen saturation Oxygen saturation in Arterial blood by Pulse oximetry Heart rate Systolic And Diastolic Provider Name and Address Organization Details Last Updated DateTime 5 175.26 cm 23.3 kg/m2 76876.5 9 g 97.2 [degF] 95 % 95 % 78 /min 128/76 mm[Hg] Kasandra jeter [facility] [employer] 5 10:33:19 Date Recorded Body height Body mass index (BMI) Body weight Body temperature Heart rate Oxygen saturation Oxygen saturation in Arterial blood by Pulse oximetry Systolic And Diastolic Provider Name and Address Organization Details Last Updated DateTime 4 175.26 cm 27.4 kg/m2 16345.9 9 g 97.1 [degF] 89 /min 98 % 98 % 115/80 mm[Hg] Jessie Becerril MA [place] [facility] [employer] [facility] 4 16:11:55 Social History Question Answer Notes LastModified by Organizat ion Details LastModified Time Tobacco Smoking Status Never Smoker Addis Siegel, RMAutumn null, [place] [facility] 05/05/2025 11:16:50 What Was The Date Of Your Most Recent Tobacco Screening? 05/05/2025 [email or web address] Information not available 05/05/2025 Sex: Unknown Functional Status Question Answer Note LastModified by Organizat ion Details LastModified Time Do you or have you ever used any other forms of tobacco or nicotine? No [id number] Information not available 01/25/2023 What is your level of alcohol consumption? 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 Family History Relationship Description Onset Age of this Age Resolved Age Notes LastModified by Organization Details LastModified Time Mother Family history of malignant neoplasm [id number] Not available 01/25/2023 14:11:47 Notes:Mother stro ke - grandfather, high blood pressure - grandfather, cancer - mother Medical History Condition Response ARTHRITIS Y HYPERTENSION Y STROKE/TIA Y Gynecological HistoryNo gynecological history recorded. Obstetrics History GPAL:G 0 P 0 0 0 0 Past Encounters Encounter ID Performer Location Encounter Start Date Encounter Closed Date Diagnosis/Indication Diagnosis SNOMED-CT Code Diagnosis ICD10 Code Diagnosis Note [id number] Nik Sequeira [place] [place] [address] [address] 03/25/2021 00:00:00 03/25/2021 17:18:32 [id number] NADIA Osborn [facility] [address] [place] [address] 07/29/2021 00:00:00 07/29/2021 10:36:40 [id number] Nik Sequeira MD [place] [place] [address] [address] 08/23/2021 00:00:00 08/23/2021 16:53:31 [id number] Yazan Majano MD S_[address] [place] [address] 10/26/2021 00:00:00 10/26/2021 09:45:01 [id number] Nik Sequeira MD [place] [place] [address] [place] [address] 04/07/2022 00:00:00 04/07/2022 17:01:48 [id number] Nik Sequeira MD [facility] [place] [place] [address] [place] [address] 05/25/2022 00:00:00 05/25/2022 17:10:13 [id number] Nik Sequeira MD [place] [place] [address] [address] 06/16/2022 00:00:00 06/16/2022 15:31:44 [id number] Nik Sequeira MD [place] [place] [address] [place] [address] 07/08/2022 00:00:00 07/08/2022 10:32:56 [id number] Nik Sequeira MD [facility] [place] [address] [address] 08/17/2022 00:00:00 08/17/2022 13:49:32 [id number] Nik Sequeira MD [facility] [place] [address] [place] [address] 06/22/2023 16:24:30 06/22/2023 17:33:37 Essential hypertension 53269293 I10 under control Anxiety 40015104 F41.9 under control Gastroesop hageal reflux disease 418754009 K21.9 meds help but still has feeling of a lump, needs EGD, wants to wait Hyperlipidemia 19276418 E78.5 on meds Irritable bowel syndrome 31450621 K58.9 stable Obesity 884916680 E66.9 advsed to lose Adult heal th examination 970407075 Z00.00 Mammogram- ap- Partial Hysterecto my Mammography abnormal 168 914152 R92.8 s/p biopsy , no report Sleep anisa kenny disturbance 17289362 G47.9 risks of sleep apnea, sleep score is in the chart Depression screening 171 722328 Z13.31 neg Body mass index 30+ - obesity 266985352 Z68.32 Low back pain 508551306 M54.50 [id number] Nik Sequeira MD [facility] [place] [facility] [address] [place] [address] 02/01/2024 09:25:08 02/01/2024 09:55:53 Essential hypertension 40300645 I10 under control Anxiety 08183425 F41.9 under control Gastroesop hageal reflux disease 133172663 K21.9 not better with meds Hyperlipidemia 89376362 E78.5 on meds Irritable bowel syndrome 14329548 K58.9 stable Obesity 879642950 E66.9 advised to lose Adult heal th examination 201941056 Z00.00 Mammogram- 2Pap- Partial Hysterecto my Mammography abnormal 168 590639 R92.8 s/p biopsy , no report Sleep anisa kenny disturbance 76441547 G47.9 risks of sleep apnea, sleep score is in the chart, willing to get it done [id number] Nik Sequeira MD [facility] Internal [facility] [address] [place] [address] 06/06/2024 09:16:00 06/06/2024 09:56:06 Essential hypertension 01364467 I10 under control Anxiety 36032183 F41.9 under control Gastroesop hageal reflux disease 849540424 K21.9 better with meds Hyperlipidemia 91931665 E78.5 on meds Irritable bowel syndrome 51871169 K58.9 stable Obesity 418824266 E66.9 advised to lose Adult heal th examination 386741910 Z00.00 Mammogram- 2Pap- Partial Hysterecto my Mammography abnormal 168 500432 R92.8 s/p biopsy , no report Sleep anisa kenny disturbance 58548734 G47.9 symptoms have improved Low back pain 103395227 M54.50 [id number] Nik Sequeira MD [facility] Internal Med [facility] [address] [place] [address] 07/26/2024 15:54:21 07/26/2024 16:50:35 Low back pain 778186148 M54.50 will reorder MRI and send referral to the previous back surgeon in hopes to reach out for assistance and care for the patients continued pain and limited mobility. [id number] Nik Sequeira MD [facility] Internal [facility] [address] [facility] [place] [address] 12/17/2024 08:54:09 12/17/2024 09:33:19 Essential hypertension 88015223 I10 under control, will stop atenolol and watch bp, recheck bp in Anxiety 96925841 F41.9 under control Gastroesop hageal reflux disease 415935165 K21.9 better with meds Hyperlipidemia 64423670 E78.5 on meds Irritable bowel syndrome 53761599 K58.9 stable Obesity 632447078 E66.9 advised to lose more Adult heal th examination 990679874 Z00.00 Mammogram- 2021- sees GEOMETRICIAN in FebPap- Partial Hysterecto myFLU- NEVERCOVID - NEVER Mammography abnormal 168 169015 R92.8 s/p biopsy , mammogram in 01/21 Screening mammography 24 157292 Z12.31 [id number] Nik Sequeira MD [facility] Internal [facility] [address] [facility] [place] [address] 03/24/2025 08:56:16 03/24/2025 09:41:14 Essential hypertension 47343872 I10 under control, will stop atenolol and watch bp, recheck bp in Anxiety 17879957 F41.9 under control Gastroesop hageal reflux disease 044763242 K21.9 better with meds Hyperlipidemia 86328904 E78.5 on meds Irritable bowel syndrome 69759290 K58.9 stable Obesity 791616759 E66.9 advised to lose more Adult heal th examination 789177858 Z00.00 Mammogram- 02/14/2025 Pap- Partial Hysterecto myFLU- NEVERCOVID - NEVER Mammography abnormal 168 076550 R92.8 s/p biopsy , mammogram in 01/21 Long-term drug therapy 879382226 Z79.891 Pain of le ft hip joint 6384497610 14333 M25.844 [id number] Moe Damon MD [facility] [address] [place] [address] 05/05/2025 10:55:57 05/05/2025 11:59:00 Pain of hip region 20090453 M25.551 M25.197 [id number] Nik Sequeira MD [facility] [place] [facility] [address] [place] [address] 05/15/2025 10:23:47 05/15/2025 11:15:02 History of back problem 012054129 Z87.39 Seeing Ortho for injections on June 02- Acute otitis media 50672 03 H66.90 Health Concerns Section Related Observation LastModified by Organization Detai ls LastModified Time None Recorded Concern Status LastModified by Organization Details LastModified Time None Recorded Advance Directives Directive None Recorded Payers Insurance Date Sequence Insurance Name Policy Number Policy Harris Covered Member ID Harris Member ID Guarantor Name 05/05/2025 1 [facility] [id number] [place] [id number] [place] 05/05/2025 3 [facility] [id number] [place] [id number] [place] 05/15/2025 1 [facility] [id number] Kevin Ni [id number] [place] 06/22/2023 1 [facility] [id number] Kevin Ni [id number] [place] Ni 05/15/2025 1 [facility] [id number] [place] 05/15/2025 1 [facility] Ni [id number] [place] Notes Date Note Type Note Provider Name and Address Organization Details Recorded Time 07/26/2024 text/html She has a histor y of back pain. Was seen in May of 2024. She has history of back surgery but this pain is new and in a different area. Anjana Mcclendon NP [address] [facility], [place], [address], [facility] 07/26/2024 16:55:31 12/17/2024 text/html Pt is here today for her routine follow upPT IS FASTING ( [facility] ) Hypertension- controlled with medsMeds- Atenolol 50mg daily Anxiety- controlled with med, no depression. no anxietyMeds- Escitalopram 10mg daily , Buspirone 7.5mg daily GERD- taking meds daily, still has some feeling in the throat all the times.Meds- Pantoprazole 40mg daily Hyperlipidemia- on medsMeds- Rosuvastatin 20mg daily Obesity- Has lost 10lbs since last OV. Has lost total of 50 lbs. She no longer takes Semaglutide. Abn mammogram, s/p neg biopsy No more sleep apnea symptoms, never had sleep study Nik Sequeira MD [address], [place], [address], [employer] 12/17/2024 09:27:57 03/24/2025 text/html Pt is here today for her routine follow upPT IS FASTING ( [facility] ) Also C/o bilateral hip pain, more on the left, no injury, had PT for back pain and no more back pain Hypertension- controlled with medsMeds- no meds any more Anxiety- controlled with med, no depression. no anxietyMeds- Escitalopram 10mg daily , Buspirone 7.5mg daily GERD- better withput medsMeds- Not on Pantoprazole Hyperlipidemia- on meds, labsMeds- Rosuvastatin 20mg daily Obesity- Has lost 1lbs since last OV.Just restarted 5 mg Zepbound last month. Through Ro. Was on 12.5 mg and was stopped 5 months ago. h/o Abn mammogram, s/p neg biopsy, nl mammogram 02/18 Anxiety- needs alprazolam for air travel prn Nik Sequeira MD [address], [place], [address], [employer] 03/24/2025 09:30:09 05/15/2025 text/html Patient is 49y/o female who is here to discuss concerns with ears. Patient reports that they feel clogged and itchy. She also reports discomfort on her right ear more than left, with congestion and drainage. Patient uses flonase regularly but recently has tried otc pseudophedrine and allergy tablets. Patient reports that she also is having worsening back and hip pain due to . Patient sees ortho regularly for injections but is having increased history pain without relief. She uses heating pads, ice, pillows, otc medications, and positioning without any relief. Patient denies fever, vomiting/diarrhea, rash or recent sick contacts. June 02 hip injection is scheduled- having increased break through pain BERTRAND Ramirez-C [address] [facility], [facility] [address], [place], [address], [facility] 05/15/2025 11:14:11 OBGyn Episode No OBEpisode recorded.
--- OUTSIDE RECORDS SUMMARY | 2025-06-02 09:40 | XMS_ITS | Clinical Summary ---
Author Organization [address] Address [address] [place] [address] Care Team Providers Care Compilation Clerk Name Role Phone Nik Sequeira MD Primary Care Provider [phone] Edgar Rodriguez MD Unavailable [phone] Allergies Active Allergy Reactions Criticality Noted Date [...] daily Active busPIRone (BUSPAR) 7.5 mg tablet 2 Active escitalopram (LEXAPRO) 10 mg tablet escitalopram 10 mg tablet Active tirzepatide, weight loss, (Zepbound) 10 mg/0.5 mL pen injector Inject 0.5 mL (10 mg total) under the skin every 7 days 2 mL 2 5 Active Active Problems Problem Noted Date Diagnosed Date Overweight with body mass in dex (BMI) of 25 to 25.9 in adult 04/07/2025 Abnormal mammogram 10/12/2022 Lumbar disc disease with radiculopathy Encounters Date Type Department Care Team Description 04/07/2025 2:30 PM CDT Office Visit [facility] [address] [address] Regina Gonzalez MD Overweight with body mass index (BMI) of 25 to 25.9 in adult (Primary Dx) 04/07/2025 Telephone [facility] [address] [address] Regina Gonzalez MD 03/05/2025 Telephone [facility] [address] [address] Barrington Sepulveda II, MD from Last 3 Months Surgical History Surgery Date Site/Laterality Comments BACK SURGERY 11/27/2021 - 11/26/2022 HYSTERECTOMY 11/27/2013 - 11/26/2014 partial BREAST BIOPSY 10/26/2022 Left Medical History Medical History Date Comments Hypertension Stroke (HCC) Chronic headaches Family History Medical History Relation Name Comments Bone cancer Mother Breast cancer Mother Liver cancer Mother Relation Name Status Comments Mother Social History Tobacco Use Types Packs/Day Years Used Date Smoking Tobacco: Former Cigarettes 1 4 1995 Tobacco Cessation:Counseling Given: Not Answered AUDIT-C [...] on file 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 Gender Identity Not on file Sexual Orientation Not on file Obstetrics History Para Term AB IAB SAB Ectopic Multiple Livin g Live Births 2 2 2 Date Outcome GA Total Labor Labor/2nd/3rd Weight Sex Type Anes PTL Shaneka A1 A5 Name Clin Term Term Last Filed Vital Signs Vital Sign Reading [...] 04/07/2025 2:52 PM CDT Plan of Treatment Health Maintenance Due Date Last Done Comments Colon Cancer Screening-Colonoscopy 1977 Depression Screening 1977 Hepatitis C Screening 1977 DTaP/Tdap/Td Vaccine (1 - Tdap) 1988 Hepatitis B Screening 1995 Regular Well Visit/Exam 18-64 1995 Influenza Vaccine (#1) 2025 08/20/2024 Breast Cancer Screening-Mammogram 02/14/2026 025 Pneumococcal vaccine <65 Aged Out 08/20/2024 No longer eligible based on patient's age to complete this topic Medical Devices Implanted Type Area Artificial Teeth Inspector Device Identifier Shelf Expiration Date Model / Serial / Lot Bard Peripheral Vascular Ultraclip Bard 17ga 10cm 2 Trigger Permanent Ultrasound [id number] - [id number] Implanted:Qty: 1 on 10/26/2022 at [facility] [employer] [id number] / / Procedures Procedure Name Priority Date/Time [...] Most Recently Relevant to Health Maintenance Insurance [employer] [facility]PPO Address: [address] [facility] H[facility]/PPO Address: [place] [address] Care Teams Compilation Clerk Relationship Specialty Start Date End Date Nik Sequeira MD PCP - General Internal Medicine 04/07/22 Edgar Rodriguez MD [address] [place] [address] Referring Physician Obstetrics and Gynecology 08/18/22
--- OUTSIDE RECORDS SUMMARY | 2025-06-02 09:40 | XMS_ITS | Encounter Summary ---
Author Organization [facility] Healthcare Address [address] [place] [address] Care Team Providers Care Manager Product Design Name Role Phone Unavailable Primary Care Provider Unavailabl e Reason for Visit * Diagnostic Imaging (Routine) - Closed Specialty Diagnoses / Procedures Referred By Contac t Referred To Contact Procedures Breast Imaging Screening Outside Reference Aft, Kristina Luke MD PhD [address] [place] [address] Phone: tel: fax: Referral ID Status Reason Start Date Expiration Date Visits Re quested Visits Authorized [id number] Closed 09/26/2022 10/26/2023 1 1 Encounter Details Date Type Department Care Team (Late st Contact Info) Description 04/19/2021 Hospital Encounter [facility] [address] [place] [phone] Social History Tobacco Use Types Packs/Day Years Used Date Smoking Tobacco: Former Cigarettes 1 4 1995 AUDIT-C Answer Date Recorded Q1: How often [...] on file 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 Monthly or less 10/12/2022 1:52 PM Richard Stock CM A Q2: How many drinks containing alcohol do you have on a typical day when you are drinking? 1 or 2 10/12/2022 1:52 PM Richard Stock CMA Q3: How often do you have six or more drinks on one occasion? Less than monthly 10/12/2022 1:52 PM Richard Stock CM A documented as of this encounter Plan of Treatment Not on file documented as of this encounter Procedures Procedure Name Priority Date/Time Associated Diagnosis Comments BREAST IMAGING MG SCREENING OUTSIDE REFERENCE Routine 04/19/2021 12:00 AM CDT documented in this encounter Results * Breast Imaging Screening Outside Reference (04/19/2021 12:00 AM CDT) Impressions [facility] - 09/26/2022 10:54 AM CDT These images are for Reference purposes only and have not been reviewed by [facility]. There will be no report generated by a [facility] Radiologist. Narrative [facility] - 09/26/2022 10:54 AM CDT EXAMINATION: Images For Reference Purposes Only us Kristina [address] MD PhD IMG MAMMO PROCEDURES Final Result [facility] documented in this encounter Visit Diagnoses Not on filedocumented in this encounter
--- OUTSIDE RECORDS SUMMARY | 2025-06-02 09:41 | XMS_ITS | Encounter Summary ---
Author Organization [facility] Healthcare Address [address] [place] [address] Care Team Providers Care Lifestyle Block Farmer Name Role Phone Unavailable Primary Care Provider Unavailabl e Reason for Visit * Diagnostic Imaging (Routine) - Closed Specialty Diagnoses / Procedures Referred By Contac t Referred To Contact Procedures Breast Imaging Screening Outside Reference Aft, Kristina Luke MD PhD [address] [place] [address] Phone: tel: fax: Referral ID Status Reason Start Date Expiration Date Visits Re quested Visits Authorized [id number] Closed 09/26/2022 10/26/2023 1 1 Encounter Details Date Type Department Care Team (Late st Contact Info) Description 08/09/2019 Hospital Encounter [facility] [address] [place] [address] [phone] Social History Tobacco Use Types Packs/Day Years [...] on file 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 There will be no report generated by a [facility] Radiologist. Narrative [facility] - 09/26/2022 10:55 AM CDT EXAMINATION: Images For Reference Purposes Only us Kristina [address] MD PhD IMG MAMMO PROCEDURES Final Result [facility] documented in this encounter Visit Diagnoses Not on filedocumented in this encounter
== END 2025-06-02 09:33 | disposition home or self-care (01) ==
PROVIDERS: PCP Internal Medicine; Visit Provider Orthopaedic Surgery
DX: M25.552 Pain in left hip (principal); M25.551 Pain in right hip
CPT/HCPCS: 20610; 77002; J1010; Q9966

== ENCOUNTER 2025-10-28 13:30 | Outpatient (CLI) | payer OTHER, SELFPAY ==
--- NOTE | ~2025-10-28 | XR_ITS ---
EXAMINATION: XR fl inj hip LT for MR/CT DATE: 10/28/2025 15:50 INDICATION: Left hip osteoarthritis TECHNIQUE: A time-out was performed to verify the patient's name, date of , and procedure to be performed. The procedure including the risks, benefits, and alternatives was discussed with the patient. Risks discussed included bleeding and infection. The patient understood the risks and agreed to proceed. The skin overlying the left hip joint was prepped and draped in usual sterile fashion. Anesthetic was administered with 1% lidocaine subcutaneously. A 22 G needle was advanced under fluoroscopic guidance into the joint. Injection of 1 mL of Omnipaque 240 confirmed intra-articular position of the needle. Subsequently, injectate consisting of 12 mL of 2:1:1 mixture of sterile saline:Omnipaque 240:1% lidocaine mixed 200:1 with 529 mg/mL Multihance gadolinium contrast was instilled with intra-articular administration confirmed with intermittent fluoroscopy. The needle was removed and the entry site was cleaned and dressed. There were no immediate complications. Fluoroscopy exposure time was 0.1 minutes. The total number of images was 7. Total DAP was 0.403 Gycm^2. FINDINGS: Real-time fluoroscopy demonstrates the needle injected contrast in the left hip joint. IMPRESSION: 1. Successful left hip joint injection of a dilute gadolinium contrast mixture for subsequent MRI arthrogram which will be dictated separately. Reviewed, dictated and finalized at location A. TENANCE MECHANIC ENGINE
--- NOTE | ~2025-10-28 | MR_ITS ---
EXAMINATION: MR hip RT w con, MR hip LT w con DATE: 10/28/2025 TECHNIQUE: 1. Magnetic resonance (MR) arthrogram of the right hip was performed following intra-articular gadolinium contrast injection and without intravenous contrast. Details of the hip joint injection have been dictated separately. Sequences included large [id number] of the pelvis with axial T1-weighted FSE and T2- weighted FS FSE and coronal PD-weighted FS FSE and small field of view of the right hip with axial and coronal T1-weighted FS SE and T2-weighted FS FSE and sagittal T2-weighted FS FSE. Additional T1-weighted FGRE images in a radial pattern oriented orthogonal to the acetabular rim were obtained for evaluation of the labrum. 2. MRI of the left hip was performed following intra-articular gadolinium contrast injection and without intravenous contrast. Details of the hip joint injection have been dictated separately. Sequences included small field of view of the left hip with axial and coronal T1-weighted FS SE and T2-weighted FS FSE and sagittal T2-weighted FS FSE. Additional T1-weighted FGRE images in a radial pattern oriented orthogonal to the acetabular rim were obtained for evaluation of the labrum. COMPARISON: None. FINDINGS: Bones/labrum/cartilage: Alignment is normal. No fracture, avascular necrosis or pathologic marrow replacing process. Instrumented L5-S1 anterior spinal fusion with magnetic field artifact associated with a metallic implant at the disc space. There is bilateral decreased anterosuperior femoral head/neck offset small impingement bones which could predispose towards cam-type femoral acetabular impingement. Mild osteoarthritis at the right hip with small region of deep chondral ulceration without degenerative subchondral changes at the anterosuperior right acetabulum. Contrast extends into a thin linear tear at the anterior right acetabular labrum. There is chondral labral delamination with shallow cleft along the articular surface at the junction of the cartilage and labrum extending from the anterosuperior to posterior superior right acetabulum. Mild osteoarthritis at the left hip with less severe partial thickness chondral ulceration also without degenerative subchondral changes at the anterosuperior to superolateral left acetabulum. The left acetabular labrum is relatively small suggesting chronic degeneration with small linear tear along the remaining anterior to anterosuperior labral tissue and with shallow fissuring along the articular side of the remaining tissue at the superolateral labrum. Fluid: No no loose osteochondral bodies in the contrast opacified bilateral hip joint spaces. No free fluid in the pelvis, bursitis or other abnormal fluid collections. Soft tissues: Normal and symmetric muscle bulk and signal in the pelvis and visualized proximal thighs. The bilateral iliopsoas, gluteal and proximal hamstring tendons are normal. The uterus is not identified and has likely been surgically resected. Atypical small T2 hyperintense right adnexal cysts the larger measu ring 1.3 cm. There is a 1.4 cm lesion at the left adnexa with heterogeneous increased T1 and T2 signal suggesting a hemorrhagic cyst. Limited evaluation of visceral organs of the pelvis is otherwise unremarkable. No pathologically enlarged pelvic/inguinal lymphadenopathy. IMPRESSION: 1. 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 Reviewed, dictated and finalized at location A. NESS MANAGEMENT CONSULTANT IMPRESSION: 1. 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
--- NOTE | ~2025-10-28 | XR_ITS ---
EXAMINATION: XR fl inj hip RT for MR/CT DATE: 10/28/2025 14:57 INDICATION: Right hip osteoarthritis TECHNIQUE: A time-out was performed to verify the patient's name, date of , and procedure to be performed. The procedure including the risks, benefits, and alternatives was discussed with the patient. Risks discussed included bleeding and infection. The patient understood the risks and agreed to proceed. The skin overlying the right hip joint was prepped and draped in usual sterile fashion. Anesthetic was administered with 1% lidocaine subcutaneously. A 22 G needle was advanced under fluoroscopic guidance into the joint. Injection of 1 mL of Omnipaque 240 confirmed intra-articular position of the needle. Subsequently, injectate consisting of 12 mL of 2:1:1 mixture of sterile saline:Omnipaque 240:1% lidocaine mixed 200:1 with 529 mg/mL Multihance gadolinium contrast was instilled with intra-articular administration confirmed with intermittent fluoroscopy. The needle was removed and the entry site was cleaned and dressed. There were no immediate complications. Fluoroscopy exposure time was 0.1 minutes. The total number of images was 6. Total DAP was 0.464 Gycm^2. FINDINGS: Real-time fluoroscopy demonstrates the needle and injected contrast in the right hip joint. IMPRESSION: 1. Successful right hip joint injection of a dilute gadolinium contrast mixture for subsequent MRI arthrogram which will be dictated separately. Reviewed, dictated and finalized at location A. ENGINEER
== END 2025-10-28 13:31 | disposition home or self-care (01) ==
PROVIDERS: PCP Internal Medicine
DX: M16.0 Bilateral primary osteoarthritis of hip (principal); S73.192A Other sprain of left hip, initial encounter; S73.191A Other sprain of right hip, initial encounter; X58.XXXA Exposure to other specified factors, initial encounter
CPT/HCPCS: 20610; 73722; 77002; A9577; J2003; Q9966